=== PATIENT | female | born 1950 | race Caucasian/White ===

== ENCOUNTER 2021-08-06 10:56 | Inpatient (IN) | payer BC, SELFPAY ==
[~2021-08-06] VITALS: Ht 175.3 cm; Wt 117.9 kg
[2021-08-06 11:33] VITALS: BP 129/111
--- NOTE | 2021-08-06 12:00 | NUR ---
PT FROM [facility] C/O RESPIRATORY DISTRESS AND LOW 02 SATURATION, ALOC SINCE THIS AM. PT TRACH TO VENT PLACED ON VENT BY RT TOLERATING SETTINGS. IV INSERTED TO LEFT HAND #20GUAGE. F/C NOTED DRAINING TO GRAVITY. NAD. SAFETY MAINTAINED.
[2021-08-06] MEDS ORDERED: NACL 0.9% 1,000 ML IV ONE (12:05)
[2021-08-06 12:47] LABS: BASOPHILS # (AUTO) 0.2 K/uL (0.00-0.22); BASOPHILS % (AUTO) 0.9 % (0.0-2.0); EOSINOPHILS % (AUTO) 0.1 % (0.0-4.0); HEMATOCRIT 31.3 % (36-48); HEMOGLOBIN 10.4 g/dL (12.0-16.0); LYMPHOCYTES # (AUTO) 0.2 K/uL (2.5-16.5); LYMPHOCYTES % (AUTO) 1.2 % (20.5-51.1); MEAN CORPUSCULAR HEMOGLOBIN 31 pg (27-31); MEAN CORPUSCULAR HGB CONC 33 g/dL (33-37); MEAN CORPUSCULAR VOLUME 93.5 fL (80-94); MONOCYTES # (AUTO) 0.6 K/uL (0.8-1.0); MONOCYTES % (AUTO) 3.5 % (1.7-9.3); NEUTROPHILS # (AUTO) 16.7 K/uL (1.8-7.7); NEUTROPHILS % (AUTO) 94.3 % (42.2-75.2); PLATELET COUNT (AUTO) 162 K/uL (140-450); RED BLOOD CELL COUNT(AUTO) 3.35 MIL/uL (4.20-5.40); RED CELL DISTRIBUTION WIDTH 13.6 % (11.6-13.7)
[2021-08-06 12:53] LABS: WHITE BLOOD COUNT (AUTO) 17.7 K/uL (4.8-10.8)
[2021-08-06 13:06] LABS: PROTHROMBIN TIME 11.4 secs (10.8-13.4)
[2021-08-06 13:28] LABS: ALBUMIN 1.8 g/dL (3.4-5.0); ANION GAP 9.3 (8-16); ASPARTATE AMINOTRANSFERASE 712 U/L (15-37); CARBON DIOXIDE 35.6 mmol/L (21-32); CHLORIDE 104 mmol/L (98-107); CREATININE 1.1 mg/dL (0.6-1.3); GLUCOSE 112 mg/dL (74-106); POTASSIUM 3.9 mmol/L (3.5-5.1); SODIUM SERUM 145 mmol/L (136-145); TOTAL BILIRUBIN 0.3 mg/dL (0.0-1.0)
[2021-08-06 13:47] LABS: UREA NITROGEN, BLOOD 68 mg/dL (7-18)
[2021-08-06] MEDS ORDERED: CEFEPIME 1,000 MG in DEXTROSE 5% 50 ML IV ONE (14:45)
[2021-08-06] MEDS ORDERED: VANCOMYCIN 1,000 MG in DEXTROSE 5% 250 ML IV ONE (14:45)
--- NOTE | 2021-08-06 14:58 | NUR ---
FAMILY AT BEDSIDE, DECIDED TO MAKE PT COMFORT MEASURES ONLY. DR PORTER AT BEDSIDE WITH FAMILY. ZION BARFIELD SIGNED.
[2021-08-06] MEDS ORDERED: VANCOMYCIN 1,000 MG VIAL ONE (15:18)
[2021-08-06] MEDS ORDERED: CEFEPIME 1,000 MG VIAL ONE (15:18)
[2021-08-06] MEDS ORDERED: ACETAMINOPHEN 325 MG TAB PO PRN (17:35)
[2021-08-06] MEDS ORDERED: VANCOMYCIN PER PHARMACY MC PRN (17:35)
[2021-08-06] MEDS ORDERED: KCL 20 MEQ/WATER INJ PREMIX 200 ML IV PRN (17:35)
[2021-08-06] MEDS ORDERED: MAGNESIUM OXIDE 400 MG TAB PO PRN (17:35)
[2021-08-06] MEDS ORDERED: MAG SULF 2000 MG/WATER PREMIX 50 ML IV PRN (17:35)
[2021-08-06] MEDS ORDERED: POTASSIUM CHLORIDE 10 MEQ TABER PO PRN (17:35)
[2021-08-06] MEDS ORDERED: MORPHINE SULFATE 4 MG/ML SYR IVP PRN (17:35)
[2021-08-06] MEDS ORDERED: HYDROcodone/APAP 5/325 MG 1 TAB TAB PO PRN (17:35)
[2021-08-06] MEDS ORDERED: ONDANSETRON 4 MG/2 ML VIAL IVP PRN (17:35)
[2021-08-06] MEDS ORDERED: ACETAMINOPHEN 650 MG SUPP RC ONE (18:31)
[2021-08-06] MEDS ORDERED: ACETAMINOPHEN 650 MG SUPP RC PRN (18:35)
[2021-08-06] MEDS: PIPERACILLIN/TAZOBACTAM 3.375 GM in DEXTROSE 5% 50 ML IV SCH (18:36)
--- NOTE | 2021-08-06 18:36 | NUR ---
picture taken of wound and placed in chart. pt appears uncomfortable medicated with morphine per order. pending admission bed. nad.
[2021-08-06 19:44] VITALS: BP 69/27
--- NOTE | 2021-08-06 22:20 | NUR ---
Patient appears to be resting comfortably in bed-- semi-fowlers, eyes closed, and attached to vent. Heart rate increased in the 120s, and with agonal breathing. No signs of distress noted. Safety measures are in place, placed on the alarm security or surveillance monitor, and will continue to monitor patient.
[2021-08-06 22:24] VITALS: BP 62/30
[2021-08-06 22:31] VITALS: BP 63/28
--- NOTE | 2021-08-06 23:38 | NUR ---
Called reema the of patient ([facility]) about patient passing. gave patient information on the home [facility] [place] #[phone]
--- NOTE | 2021-08-06 23:43 | NUR ---
called highway truck driver and will get call back shortly.
--- NOTE | 2021-08-06 23:53 | NUR ---
PAGED -- WILL CALL BACK SHORTLY
--- NOTE | 2021-08-07 00:02 | NUR ---
Called joint setter back -- said in line and will call me back for questions.
--- NOTE | 2021-08-07 00:06 | NUR ---
SPOKE WITH MD MALLORY TO MAKE MD AWARE THAT PATIENT HAS PASSED
--- NOTE | 2021-08-07 04:44 | NUR ---
spoke with Magaly the gun synchronizer and body is released at 0455. case #[id number]
--- NOTE | 2021-08-07 04:58 | NUR ---
called [facility] and spoke with teofilo. #[id number]
--- NOTE | 2021-08-07 05:13 | NUR ---
spoke with Amber from [facility] 1-2 hrs #[phone]
--- NOTE | 2021-08-07 07:05 | NUR ---
patient placed in body bag and placed 2 tags, one on the right big toe and the second on the outside of the bag
--- NOTE | 2021-08-07 07:28 | NUR ---
Pt report given to Martine ROLLE. Transfer of care at this time.
[2021-08-07] MEDS: PIPERACILLIN/TAZOBACTAM 3.375 GM in DEXTROSE 5% 50 ML IV SCH ×2 (08:03→08:04)
--- NOTE | 2021-08-07 08:10 | NUR ---
WITNESSED SIGNTURE ON RECORD OF , PHONE [facility] CONSENT BY GIVEN WITNESSED 2 RN SIGNATURES. COPY OF HEMANT GIVEN TO TRANSPORTATION TEAM WITH [employer]AC[employer].
== END 2021-08-06 23:09 | DRG 871 ==
LOC: MED 10:56 → MMU 17:36 → MED 17:36
PROVIDERS: ADMIT Hospitalist; ATTEND Hospitalist
PROC: 5A1935Z Respiratory Ventilation, Less than 24 Consecutive Hours (ICD-10-PCS; principal; 2021-08-06)
DX: A41.9 Sepsis, unspecified organism (principal); J96.21 Acute and chronic respiratory failure with hypoxia; R53.2 Functional quadriplegia; G12.21 Amyotrophic lateral sclerosis; Z99.11 Dependence on respirator [ventilator] status; Z20.822 Contact with and (suspected) exposure to COVID-19; Z93.0 Tracheostomy status; Z93.1 Gastrostomy status
CPT/HCPCS: 36415; 36600; 71045; 80053; 82550; 82553; 82803; 83605; 83874; 83880; 84484; 85025; 85610; 85730; 87040; 93005; 99291; J0692; J1644; J2270; J2543; J3370; J7060